=== PATIENT | female | born 1955 | race Caucasian/White ===

== ENCOUNTER 2018-08-14 14:56 | Emergency (ER) | payer OTHER ==
[~2018-08-14] VITALS: Ht 170.2 cm; Wt 99.6 kg
[2018-08-14 16:01] VITALS: BP 125/82
== END 2018-08-14 16:09 | disposition home or self-care (01) ==
LOC: ED 16:03
DX: S00.33XA Contusion of nose, initial encounter (principal); W10.9XXA Fall (on) (from) unspecified stairs and steps, initial encounter; Y93.01 Activity, walking, marching and hiking; Y92.89 Other specified places as the place of occurrence of the external cause; Y99.8 Other external cause status
CPT/HCPCS: 70160; 99283